=== PATIENT | female | born 1975 | race Caucasian/White ===

== ENCOUNTER 2018-09-17 11:17 | Day surgery (SDC) | payer MEDICAID ==
[2018-09-17] MEDS ORDERED: MIDAZOLAM HCL 5 MG/5 ML VIAL ONE (12:45)
[2018-09-17] MEDS ORDERED: methylPREDNISolone ACETATE 40 MG/ML ONE (12:45)
[2018-09-17] MEDS ORDERED: LIDOCAINE 2%, 20 ML MDV ONE (12:45)
[2018-09-17] MEDS ORDERED: LR 1,000 ML IV.SOLN IV ONE (12:45)
[2018-09-17] MEDS ORDERED: BUPIVACAINE /PF 0.25% 30 ML VIAL INJ ONE (12:45)
[2018-09-17] MEDS ORDERED: DIPHENHYDRAMINE INJ 50 MG/ML VIAL ONE (12:45)
[2018-09-17] MEDS ORDERED: IOHEXOL 300 mgI/mL, 50 mL INFUS..BTL IV ONE (12:45)
[2018-09-17 17:50] VITALS: BP_SYST 122
== END 2018-09-17 15:25 | disposition home or self-care (01) ==
LOC: SDS 11:17
PROVIDERS: ATTEND Internal Medicine
DX: M50.10 Cervical disc disorder with radiculopathy, unspecified cervical region (principal); M54.5 Low back pain; Z98.890 Other specified postprocedural states; G89.29 Other chronic pain; M19.90 Unspecified osteoarthritis, unspecified site
CPT/HCPCS: 62321; J1030; J1200; J2001; J2250; J3490; J7120; Q9967; 76000